=== PATIENT | female | born 1945 | race Caucasian/White ===

== ENCOUNTER 2021-07-24 10:06 | Outpatient (CLI) | payer MEDICARE ==
[2021-07-24 13:11] LABS: Hemoglobin 13.5 g/dL (12.0-15.5)
[2021-07-24 13:41] LABS: Anion Gap 15 mmol/L (10-20); BUN (Urea Nitrogen) 13 mg/dL (9.8-20.1); Calc. Creatinine Clearance 0 mL/min (70-130); Calcium 8.8 mg/dL (7.8-10.44); Carbon Dioxide 24 mmol/L (23-31); Chloride 104 mmol/L (98-107); Glucose 72 mg/dL (83-110); Potassium 4.6 mmol/L (3.5-5.1); Sodium 138 mmol/L (136-145)
[2021-07-25 11:56] LABS: SARS-CoV-2 PCR by NAA Not Detected (NotDetected)
== END 2021-07-24 10:07 | disposition home or self-care (01) ==
LOC: CSHLAB 10:06
PROVIDERS: ATTEND Otolaryngology Plastic Surgery within the Head & Neck
DX: Z01.812 Encounter for preprocedural laboratory examination (principal); Z20.822 Contact with and (suspected) exposure to COVID-19; J35.1 Hypertrophy of tonsils
CPT/HCPCS: 80048; 85014; 85018; U0003; U0005

== ENCOUNTER 2021-07-29 09:18 | Observation (INO) | payer MEDICARE ==
[2021-07-29] MEDS ORDERED: SUGAMMADEX SODIUM 200 MG/2 ML VIAL ONE (09:48)
[2021-07-29] MEDS ORDERED: EPINEPHrine 1 MG/ML AMP ONE (14:36)
[2021-07-29] MEDS ORDERED: Rocuronium Bromide 10 MG/ML (10ML VIAL) ONE (14:50)
[2021-07-29] MEDS ORDERED: Dexamethasone 20 MG/5 ML VIAL ONE (14:50)
[2021-07-29] MEDS ORDERED: Fentanyl 100 MCG/2 ML VIAL ONE ×3 (14:50→19:08)
[2021-07-29] MEDS ORDERED: Midazolam HCl 2 mg/2 ml Vial ONE (14:50)
[2021-07-29] MEDS ORDERED: PROPOFOL 20 ML ONE (14:50)
[2021-07-29] MEDS ORDERED: Ondansetron PF 4 MG/2 ML Vial IVP PRN (15:31)
[2021-07-29] MEDS ORDERED: Acetaminophen 325 MG TAB PO PRN (15:31)
[2021-07-29] MEDS ORDERED: Acetaminophen W/ Codeine 5 ML UDCUP PO PRN (16:33)
[2021-07-29] MEDS ORDERED: Dexamethasone 20 MG/5 ML VIAL SLOW IVP SCH (16:45)
[2021-07-29 19:51] VITALS: BMI 41.1
[2021-07-29] MEDS ORDERED: Dextrose 5 %-0.45 % NaCl 1,000 ML IV SCH (20:00)
[2021-07-29 20:10] VITALS: BP 164/89; TEMP 97.8
[2021-07-29] MEDS ORDERED: FLU VACC QS2021-22(65YR UP)/PF 240 MCG/0.7 ML SYRINGE IM ONE (23:45)
[2021-07-30] MEDS ORDERED: Dexamethasone 20 MG/5 ML VIAL SLOW IVP SCH (06:00)
[2021-07-30] MEDS ORDERED: Dexamethasone Sod Phosphate 20 MG in Sodium Chloride 0.9% 50 ML IVPB SCH (06:00)
== END 2021-07-30 09:00 | disposition home or self-care (01) ==
LOC: CSHSDC 09:18 → INTOOBSV 09:19 → CSHIMCU 09:19
PROVIDERS: ADMIT Otolaryngology Plastic Surgery within the Head & Neck; ATTEND Otolaryngology Plastic Surgery within the Head & Neck
PROC: 0CBM8ZX Excision of Pharynx, Via Natural or Artificial Opening Endoscopic, Diagnostic (ICD-10-PCS; principal; 2021-07-29)
PROC: 0C5PXZZ Destruction of Tonsils, External Approach (ICD-10-PCS; 2021-07-29)
DX: J35.1 Hypertrophy of tonsils (principal); G47.30 Sleep apnea, unspecified; Z86.718 Personal history of other venous thrombosis and embolism
CPT/HCPCS: 31536; 42826; 96374; G0378 ×2; 88305; J0171; J1100; J2250; J2704; J3010; J7042